=== PATIENT | female | born 1965 | race Caucasian/White ===

== ENCOUNTER 2017-05-16 08:50 | Emergency (ER) | payer OTHER ==
[~2017-05-16] VITALS: Ht 167.6 cm; Wt 78.0 kg
[~2017-05-16 08:50] MED LIST: Z.0.NO CURRENT MEDS
[2017-05-16 08:53] VITALS: BP 127/62; PULSE 73; RESP 16; TEMP 97.5; O2SAT 97
[2017-05-16] MEDS ORDERED: CETI10 PO (09:00)
[2017-05-16] MEDS ORDERED: ASPI81CH6 CHEW (09:00)
[2017-05-16] MEDS ORDERED: ZITHTAB PO (09:14)
[2017-05-16] MEDS ORDERED: VENTAER INH (09:14)
--- NOTE | 2017-05-16 09:14 | PD ---
HPI Chief Complaint: Cold / Flu Symptoms Time Seen by Provider: 09:10 Travel History International Travel<30 days: No Contact w/Intl Traveler<30days: No Traveled to known affect area: No History of Present Illness HPI This 51-year-old female is complaining of cough and congestion. She's been sick for several days. Her cough is not improving at all. She gets frequent bouts of bronchitis. She uses an albuterol inhaler which she is running out of. She is not aware of fever. She had some diarrhea yesterday and is been no vomiting. She started with a sore throat and swollen glands. [facility] Past Medical History Medical History: Denies Significant Hx Influenza Vaccination: No ?: Not Menopausal: No : 5 Para: 4 : 1 Past Surgical History Cholecystectomy: Yes Eye Surgery: Yes (muscle correction) Social History Alcohol Use: Yes (rare) Tobacco Use: No (QUIT 2017) Substance Use: No Allergies-Medications (Allergen,Severity, Reaction): Coded Allergies: No Known Allergies (Unverified Adverse Reaction, Unknown, 05/16/17) Reported Meds & Prescriptions Reported Meds & Active Scripts Active Reported Aspirin Low Dose (Aspirin) 81 Mg Chew 81 Mg CHEW DAILY Cetirizine (Cetirizine HCl) 10 Mg Tab 10 Mg PO DAILY Review of Systems General / Constitutional: Positive: Chills Eyes: No: Diploplia HENT: Positive: Headaches, Sore Throat, Rhinitis Cardiovascular: No: Chest Pain or Discomfort Respiratory: Positive: Cough Genitourinary: No: Frequency, Dysuria Musculoskeletal: No: Myalgias, Arthralgias Skin: No Rash Neurologic: Positive: Weakness Physical Exam Narrative GENERAL: Well-developed female SKIN: Focused skin assessment warm/dry. HEAD: Atraumatic. Normocephalic. EYES: Pupils equal and round. No scleral icterus. No injection or drainage. ENT: No nasal bleeding or discharge. Mucous membranes pink and moist. Posterior pharynx is erythematous NECK: Trachea midline. No JVD. Bilateral anterior cervical nodes CARDIOVASCULAR: Regular rate and rhythm. No murmur appreciated. RESPIRATORY: No accessory muscle use. Clear to auscultation. Breath sounds equal bilaterally. Occasional wheeze GASTROINTESTINAL: Abdomen soft, non-tender, nondistended. Hepatic and splenic margins not palpable. MUSCULOSKELETAL: No obvious deformities. No clubbing. No cyanosis. No edema. NEUROLOGICAL: Awake and alert. No obvious cranial nerve deficits. Motor grossly within normal limits. Normal speech. PSYCHIATRIC: Appropriate mood and affect; insight and judgment normal. Data Data Last Documented VS Vital Signs Date Time Temp Pulse Resp B/P (MAP) Pulse Ox O2 Delivery O2 Flow Rate FiO2 05/16/17 08:53 97.5 73 16 127/62 (83) 97 MDM Medical Decision Making Medical Screen Exam Complete: Yes Emergency Medical Condition: Yes Medical Record Reviewed: Yes Differential Diagnosis Differential includes influenza, bronchitis, Narrative Course Patient be put on Z-Martin and albuterol. Diagnosis Primary Impression: Bronchitis Scripts Albuterol 18 GM Inh (Ventolin Hfa 18 GM Inh) 90 Mcg/Act Aer 2 PUFF INH Q4-6H Y for SHORTNESS OF BREATH, #1 INHALER 0 Refills Prov: Oscar Schulz MD 05/16/17 Azithromycin (Zithromax Z-Martin) 250 Mg Dspk 250 MG PO DIRECTED for Infection, #1 DSPK 0 Refills 500 MG (2 tabs) day 1, then 1 tab days 2-5. Prov: Oscar Schulz MD 05/16/17 Disposition: DISCHARGE HOME Condition: Stable Oscar Schulz MD May 16, 2017 09:14
== END 2017-05-16 09:28 | disposition home or self-care (01) ==
LOC: PHEFT 08:50
DX: J40 Bronchitis, not specified as acute or chronic (principal); Z87.891 Personal history of nicotine dependence
CPT/HCPCS: 99283

== ENCOUNTER 2017-07-08 15:45 | Emergency (ER) | payer OTHER ==
[~2017-07-08] VITALS: Ht 167.6 cm; Wt 80.4 kg
[~2017-07-08 15:45] MED LIST changes: +ASPI81CH6 CHEW; +CETI10 PO; +VENTAER INH; -Z.0.NO CURRENT MEDS; +ZITHTAB PO
[2017-07-08 16:02] VITALS: BP 113/76; TEMP 98.6; O2SAT 96
[2017-07-08 16:04] VITALS: BP 113/76; PULSE 74; RESP 16; TEMP 98.6; O2SAT 96
[2017-07-08] MEDS ORDERED: FLUT1SPR5 EACH NARE (16:17)
[2017-07-08] MEDS ORDERED: ZITHTAB PO (16:17)
--- NOTE | 2017-07-08 16:18 | PD ---
HPI Chief Complaint: ENT Complaint Time Seen by Provider: 16:02 Travel History International Travel<30 days: No Contact w/Intl Traveler<30days: No Traveled to known affect area: No History of Present Illness HPI 51-year-old female presents to the emergency department for evaluation of sinus pressure, headache, bilateral ear pain, sore throat that started 1 week ago. She states that she was recently on amoxicillin for a possible otitis media. Patient denies any current fevers. No abdominal pain. No vomiting. She states that she is taking Zyrtec and saline nasal sprays without relief. Patient states that she does have history of allergies and normally a Z-Martin will help her symptoms. No exacerbating factors. Moderate severity. PFSH Past Medical History Medical History: Denies Significant Hx Tetanus Vaccination: Unknown Influenza Vaccination: No ?: Not Menopausal: No : 5 Para: 4 : 1 Past Surgical History Cholecystectomy: Yes Eye Surgery: Yes (muscle correction) Social History Alcohol Use: Yes (rare) Tobacco Use: No (QUIT 2016) Substance Use: No Allergies-Medications (Allergen,Severity, Reaction): Coded Allergies: No Known Allergies (Unverified Adverse Reaction, Unknown, 07/08/17) Reported Meds & Prescriptions Reported Meds & Active Scripts Active Reported Aspirin Low Dose (Aspirin) 81 Mg Chew 81 Mg CHEW DAILY Cetirizine (Cetirizine HCl) 10 Mg Tab 10 Mg PO DAILY Review of Systems Except as stated in HPI: all other systems reviewed are Neg Physical Exam Narrative GENERAL: Well-nourished, well-developed female patient, ambulatory. Afebrile. SKIN: Focused skin assessment warm/dry. HEAD: Normocephalic. Atraumatic. ENT: Mucosa pink and moist. No erythema or exudates. No uvular edema. No uvular , palatal, or tonsillar deviation. Airway patent. Nasal turbinates appear normal without nasal blood, purulent drainage or septal hematoma. Bilateral tympanic membranes are clear without erythema or perforation. EYES: No scleral icterus. No injection or drainage. NECK: Supple, trachea midline. No JVD or lymphadenopathy. No nuchal rigidity or meningeal signs. CARDIOVASCULAR: Regular rate and rhythm without murmurs, gallops, or rubs. RESPIRATORY: Breath sounds equal bilaterally. No accessory muscle use. Lungs sounds are clear to auscultation. GASTROINTESTINAL: Abdomen soft, non-tender, nondistended. MUSCULOSKELETAL: No cyanosis, or edema. BACK: Nontender without obvious deformity. No CVA tenderness. Data Data Last Documented VS Vital Signs Date Time Temp Pulse Resp B/P (MAP) Pulse Ox O2 Delivery O2 Flow Rate FiO2 07/08/17 16:04 98.6 74 16 113/76 (88) 96 MDM Medical Decision Making Medical Screen Exam Complete: Yes Emergency Medical Condition: Yes Medical Record Reviewed: Yes Differential Diagnosis Viral URI versus acute sinusitis versus strep pharyngitis versus mononucleosis versus otitis media Narrative Course 51-year-old female presents to the emergency department for evaluation of cold symptoms for the been ongoing for 1 week. Patient appears well on exam. She is to continue Zyrtec. Also given a prescription for Flonase nasal spray. Patient states that azithromycin has helped these symptoms in the past. I give her prescription for a Z-Martin. However, I instructed her to wait to see if symptoms improve on their own within nasal spray. If her symptoms worsened, then she should start the Z-Martin. The patient was discharged in stable condition with instructions, including return instructions and follow up instructions. Diagnosis Primary Impression: Acute sinusitis Qualified Codes: J01.90 - Acute sinusitis, unspecified Referrals: Primary Care Physician call for appointment Patient Instructions: General Instructions, Sinusitis (ED) Additional Instructions: Continue Zyrtec. Use Flonase nasal spray as directed. If symptoms do not improve over the next few days or worsen, then start antibiotic. Follow-up with your primary care physician. Return to the emergency department for any acute worsening of symptoms. Med/Other Pt SpecificInfo: Prescription(s) given Scripts Azithromycin (Zithromax Z-Martin) 250 Mg Dspk 250 MG PO DIRECTED for Infection, #1 DSPK 0 Refills 500 MG (2 tabs) day 1, then 1 tab days 2-5. Prov: Staci Ornelas 07/08/17 Fluticasone Nasal [place] (Flonase Nasal [place]) 50 Mcg/Act [place] 50 MCG EACH NARE BID for Allergies, #1 BOTTLE 0 Refills Prov: Staci Ornelas 07/08/17 Disposition: 01 DISCHARGE HOME Condition: Stable Staci Ornelas Jul 08, 2017 16:18
== END 2017-07-08 16:31 | disposition home or self-care (01) ==
LOC: PHEFT 15:45
DX: J01.90 Acute sinusitis, unspecified (principal); H92.03 Otalgia, bilateral; R07.0 Pain in throat; Z87.891 Personal history of nicotine dependence
CPT/HCPCS: 99283

== ENCOUNTER 2017-09-02 18:51 | Emergency (ER) | payer OTHER ==
[~2017-09-02] VITALS: Ht 167.6 cm; Wt 78.5 kg
[~2017-09-02 18:51] MED LIST changes: +FLUT1SPR5 EACH NARE; -VENTAER INH
[2017-09-02 19:00] VITALS: BP 128/74; PULSE 77; RESP 18; TEMP 98.4; O2SAT 97
[2017-09-02] MEDS ORDERED: AMOX500T PO (19:49)
--- NOTE | 2017-09-02 19:50 | PD ---
HPI Chief Complaint: ENT Complaint Time Seen by Provider: 19:32 Travel History International Travel<30 days: No Contact w/Intl Traveler<30days: No Traveled to known affect area: No History of Present Illness HPI This is a 51-year-old female here with sore throat and fever for the last week. 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 Symptom severity is moderate. No difficulty swallowing or change in voice. No aggravating or alleviating factors. On inspection of her throat today she believes she saw white patches. PFS Past Medical History Medical History: Denies Significant Hx ?: Not LMP: post menapausal Menopausal: No : 5 Para: 4 : 1 Past Surgical History Cholecystectomy: Yes Eye Surgery: Yes (muscle correction) Social History Alcohol Use: Yes (rare) Tobacco Use: No (QUIT 2017) Substance Use: No Allergies-Medications (Allergen,Severity, Reaction): Coded Allergies: No Known Allergies (Unverified Adverse Reaction, Unknown, 09/02/17) Reported Meds & Prescriptions Reported Meds & Active Scripts Active Zithromax Z-Martin (Azithromycin) 250 Mg Dspk 250 Mg PO DIRECTED 500 MG (2 tabs) day 1, then 1 tab days 2-5. Flonase Nasal [place] (Fluticasone Nasal [place]) 50 Mcg/Act [place] 50 Mcg EACH NARE BID Reported Aspirin Low Dose (Aspirin) 81 Mg Chew 81 Mg CHEW DAILY Cetirizine (Cetirizine HCl) 10 Mg Tab 10 Mg PO DAILY Review of Systems Except as stated in HPI: all other systems reviewed are Neg General / Constitutional: Positive: Fever Eyes: No: Visual changes HENT: Positive: Sore Throat, No: Headaches Cardiovascular: No: Chest Pain or Discomfort Respiratory: No: Shortness of Breath Gastrointestinal: No: Abdominal Pain Genitourinary: No: Dysuria Musculoskeletal: No: Pain Skin: No Rash Neurologic: No: Weakness Psychiatric: No: Depression Physical Exam Narrative GENERAL: Alert and well-appearing 51-year-old female SKIN: Warm and dry. No rash HEAD: Normocephalic. EYES: No injection or drainage. ENT: Notable pharyngeal erythema with scant exudate noted in the left region. Uvula midline. Airways patent. Normal phonation. Mucous membranes are moist. NECK: Supple. No lymphadenopathy. CARDIOVASCULAR: Regular rate and rhythm RESPIRATORY: Breath sounds equal bilaterally. No accessory muscle use. GASTROINTESTINAL: Abdomen soft, non-tender, nondistended. Data Data Last Documented VS Vital Signs Date Time Temp Pulse Resp B/P (MAP) Pulse Ox O2 Delivery O2 Flow Rate FiO2 09/02/17 19:00 98.4 77 18 128/74 (92) 97 MDM Medical Decision Making Medical Screen Exam Complete: Yes Emergency Medical Condition: Yes Differential Diagnosis Strep pharyngitis, viral pharyngitis, URI, influenza Narrative Course 51-year-old female with pharyngitis and recent exposure to strep. She is nontoxic appearing. Treated with amoxicillin. Diagnosis Primary Impression: Pharyngitis Qualified Codes: J02.9 - Acute pharyngitis, unspecified Referrals: Primary Care Physician Departure Forms: Tests/Procedures, Work Release Enter return to work date: September 05, 2017 Additional Instructions: Antibiotics as directed. Tylenol and ibuprofen for fever and pain. Stable hydrated. Hot tea with honey and lemon may help soothe the throat Scripts Amoxicillin (Amoxicillin) 500 Mg Tab 500 MG PO TID for Infection for 10 Days, TAB 0 Refills Prov: Chary Burger 09/02/17 Disposition: 01 DISCHARGE HOME Condition: Stable Chary Burger September 02, 2017 19:50
== END 2017-09-02 20:07 | disposition home or self-care (01) ==
LOC: PHEFT 18:51
DX: J02.0 Streptococcal pharyngitis (principal); Z87.891 Personal history of nicotine dependence
CPT/HCPCS: 99283